=== PATIENT | female | born 1980 | race Caucasian/White ===

== ENCOUNTER → 2016-12-06 | Emergency (ER) | payer OTHER ==
[~2016-12-06] VITALS: Ht 167.6 cm; Wt 90.7 kg
[~2016-12-06] MED LIST: KETOROLAC TROMETH 60MG/2ML VIAL IM ONE
[2016-12-06 18:34] VITALS: BP 130/88
== END | disposition home or self-care (01) ==
LOC: ER 17:05
DX: M54.31 Sciatica, right side (principal)
CPT/HCPCS: 96372; 99283; J1885

== ENCOUNTER 2024-10-03 15:54 | Emergency (ER) | payer MEDICAID, OTHER ==
[~2024-10-03] VITALS: Ht 165.1 cm; Wt 73.6 kg
[2024-10-03] MEDS: MORPHINE SULFATE INJ 2 MG/ml SYRG IM ONE (19:02)
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
[2024-10-03 19:48] VITALS: TEMP 97.7; O2SAT 97
[2024-10-03 19:49] VITALS: BP 114/86; PULSE 86; RESP 12
[2024-10-03] MEDS ORDERED: TIZA-142 PO (19:55)
[2024-10-03] MEDS ORDERED: IBUP-1456 PO (19:55)
== END 2024-10-03 20:02 | disposition home or self-care (01) ==
LOC: EDBD 15:54 → ER 16:02
DX: S13.4XXA Sprain of ligaments of cervical spine, initial encounter (principal); S09.90XA Unspecified injury of head, initial encounter; G44.309 Post-traumatic headache, unspecified, not intractable; W18.39XA Other fall on same level, initial encounter; Y93.89 Activity, other specified; Y92.89 Other specified places as the place of occurrence of the external cause; Y99.8 Other external cause status
CPT/HCPCS: 70450; 72125; 96372; 99285; J2270